=== PATIENT | female | born 1970 | race Caucasian/White ===

== ENCOUNTER → 2017-05-09 | Outpatient (CLI) | payer OTHER ==
[2017-05-13 08:44] LABS: CHLAMYDIA TRACH RNA*** NOT DETECTED (NOT DETECTED); GC (NEIS GONORRHOEAE)RNA** NOT DETECTED (NOT DETECTED)
== END | disposition home or self-care (01) ==
LOC: C.LABPVFM 12:32
PROVIDERS: ATTEND Nurse Practitioner Family
DX: Z00.00 Encounter for general adult medical examination without abnormal findings (principal)

== ENCOUNTER → 2017-05-09 | Outpatient (CLI) | payer OTHER | END | disposition home or self-care (01) | LOC: C.PAPS 12:31 | PROVIDERS: ATTEND Nurse Practitioner Family | DX: Z00.00 Encounter for general adult medical examination without abnormal findings (principal); Z12.4 Encounter for screening for malignant neoplasm of cervix ==

== ENCOUNTER → 2017-05-21 | Outpatient (CLI) | payer OTHER ==
--- NOTE | 2017-05-21 15:16 | DIAGNOSTIC IMAGING REPORT ---
EXAMINATION: PELVIC ULTRASOUND (transabdominal and endovaginal scanning) CLINICAL HISTORY: N92.6 Irregular menstrual cycle COMPARISON STUDY: None FINDINGS: The uterus measured 12.9 x 3.8 x 5.5 cm. Within the cervix, there are is blunting gland cysts and a small amount of fluid. There is a 7 mm echogenic focus within the endometrium, possibly representing a polyp or potentially a submucosal fibroid.. There is a 21 mm fibroid within the right body of the uterus. The endometrial stripe measured 13 mm. The right ovary measured 22 x 33 x 15 mm.. The left ovary measured 6 x 26 x 26 mm. There is a 22 mm follicle.. There is no ultrasonographic evidence of ovarian torsion. It should be noted that ovarian torsion can be present with normal Doppler ultrasonographic findings. There was no evidence of pathologic free pelvic fluid. IMPRESSION: 7 mm echogenic focus within the endometrium, possibly representing a polyp or less likely submucosal fibroid. Gynecological consultation is recommended. Electronically signed by: Delio Mills M.D. 05/21/2017 3:15 PM Dictated Date/Time: 05/21/2017 3:09 PM
== END | disposition home or self-care (01) ==
LOC: C.ULTR 13:52
PROVIDERS: ATTEND Nurse Practitioner Family
DX: N92.6 Irregular menstruation, unspecified (principal)

== ENCOUNTER → 2017-06-20 | Outpatient (CLI) | payer OTHER ==
[2017-06-20 14:07] LABS: HEMATOCRIT 27.9 % (37-47); MEAN CELL VOLUME 60.3 fL (80-100); MEAN CORPUSCULAR HEMOGLOBIN 16.8 pg (25-34); MEAN PLATELET VOLUME 8.8 fL (7.4-10.4); PLATELET COUNT 434 K/uL (130-400); RED BLOOD COUNT 4.63 M/uL (4.2-5.4); WHITE BLOOD COUNT 7.35 K/uL (4.8-10.8)
[2017-06-20 17:20] LABS: PREG INTERNAL NEGATIVE QC NEG CLEAR BACKGROUND; PREG INTERNAL POSITIVE QC POS CONTROL LINE
== END | disposition home or self-care (01) ==
LOC: C.LABPVFM 11:40
PROVIDERS: ATTEND Physician Assistant
DX: N92.0 Excessive and frequent menstruation with regular cycle (principal)

== ENCOUNTER → 2017-07-24 | Outpatient (CLI) | payer OTHER ==
[2017-07-24 18:16] LABS: BLOOD UREA NITROGEN 8 mg/dl (7-18); BUN/CREATININE RATIO 15.5 (10-20); CALCIUM 9.3 mg/dl (8.5-10.1); CARBON DIOXIDE 27 mmol/L (21-32); CHLORIDE 104 mmol/L (98-107); CREATININE 0.53 mg/dl (0.60-1.20); GLUCOSE 107 mg/dl (70-99); POTASSIUM 3.9 mmol/L (3.5-5.1); SODIUM 137 mmol/L (136-145)
[2017-07-24 18:21] LABS: FERRITIN 1.9 ng/ml (8.0-388.0); TOTAL IRON BINDING CAPACITY 426 mcg/dl (250-450)
[2017-07-24 18:23] LABS: MEAN CELL VOLUME 63.7 fL (80-100); MEAN CORPUSCULAR HGB CONC 28.2 g/dl (32-36); MEAN PLATELET VOLUME 8.8 fL (7.4-10.4); PLATELET COUNT 397 K/uL (130-400); RED BLOOD COUNT 5.18 M/uL (4.2-5.4); WHITE BLOOD COUNT 7.43 K/uL (4.8-10.8)
== END | disposition home or self-care (01) ==
LOC: C.LABPVFM 11:12
PROVIDERS: ATTEND Nurse Practitioner Family
DX: D64.9 Anemia, unspecified (principal)

== ENCOUNTER → 2017-09-23 | Outpatient (CLI) | payer OTHER ==
[~2017-09-23] MED LIST: LANS15CA6 PO
== END | disposition home or self-care (01) ==
LOC: C.PATHSPEC 17:15
PROVIDERS: ATTEND Obstetrics & Gynecology
DX: N92.0 Excessive and frequent menstruation with regular cycle (principal)

== ENCOUNTER → 2017-09-30 | Day surgery (SDC) | payer OTHER ==
[2017-09-23 09:47] VITALS: Ht 157.5 cm; Wt 64.1 kg
[~2017-09-30] VITALS: Ht 157.5 cm; Wt 64.1 kg
[~2017-09-30] MED LIST changes: +ATROPINE SULFATE 0.1 MG/ML 5ML SYR IV PRN; +EpHEDrine SULFATE INJ 50 MG/ML AMP IV PRN; +FENTANYL CITRATE INJ 50 MCG/1 ML 2 ML VIAL IV PRN; +FENTANYL CITRATE INJ 50 MCG/1 ML 2 ML VIAL ONE; +FLUMAZENIL 0.1 MG/1 ML 10 ML VIAL IV PRN; +KETOROLAC TROMETHAMINE 30 MG/ML VIAL ONE; +LACTATED RINGER'S 1000ML 1,000 ML IV SCH; +LIDOCAINE HCL 2% 2 ML VIAL (20MG/ML) ONE; +MIDAZOLAM HCL 1 MG/ML 2ML VIAL ONE; +NALOXONE HCL 0.4 MG/1 ML VIAL/CARP IV PRN; +ONDANSETRON INJ 2 MG/ML 2 ML VIAL IV PRN; +ONDANSETRON INJ 2 MG/ML 2 ML VIAL ONE; +OXYCODONE/ACETAMINOPHEN 5-325 TAB PO PRN; +PROMETHAZINE HCL INJ 25 MG in SODIUM CHLORIDE 0.9% 50ML 50 ML IV PRN; +PROPOFOL IV EMULSION 10 MG/ML 20 ML VIAL IV ONE; +SODIUM CHLORIDE 0.9% 1000ML 1,000 ML IV SCH
--- NOTE | 2017-09-30 06:52 | History & Physical Bridge Note ---
H&P Re-Evaluation Bridge Note: I have examined the patient, reviewed the History & Physical and in the interval since the performance of the History & Physical I have noted the following changes of clinical significance: No changes noted
--- NOTE | 2017-09-30 07:36 | [facility] Post Operative Brief Note ---
Immediate Operative Summary Operative Date Sep 30, 2017. Pre-Operative Diagnosis Menorrhagia Post-Operative Diagnosis Same as pre-op Procedure(s) Performed hysteroscopy, D&C, Novasure ablation Surgeon Under Baster Surgeon(s) None Estimated Blood Loss 5ml Findings Consistent with Post-Op Diagnosis Specimens A.Endometrial curettings Drains None bladder emptied prior to procedure Anesthesia Type MAC Complication(s) none Disposition Accompanied Pt To Recovery: no Disposition: Recovery Room / PACU
--- NOTE | 2017-09-30 07:40 | Discharge Instructions-[facility] ---
Discharge Instructions Date of Service Sep 30, 2017. Visit Reason for Visit: Menorrhagia Discharge Discharge Diagnosis / Problem: same Discharge Goals Goal(s): Diagnostic testing, Therapeutic intervention Activity Recommendations Activity Limitations: per Instructions/Follow-up section Anesthesia . Post Anesthesia Instructions: If you have had General Anesthesia or IV Sedation: * Do not drive today. * Resume driving when surgeon permits. * Do not make important decisions or sign legal documents today. * Call surgeon for: 1. Temperature elevations greater than 101 degrees F. 2. Uncontrollable pain. 3. Excessive bleeding. 4. Persistent nausea and vomiting. 5. Medication intolerance (nausea, vomiting or rash). * For nausea and vomiting use only clear liquids such as: tea, soda, bouillon until nausea subsides, then gradually increase diet as tolerated. * If you have any concerns or questions, call your surgeon's office. If physician is unavailable and it is an emergency, call 911 or go to the nearest emergency room. . Instructions / Follow-Up Instructions / Follow-Up ACTIVITY RECOMMENDATIONS: * Avoid tampons, douching, hot tubs, pools, and intercourse until bleeding has stopped. * May shower as usual. * No strenuous activity for 24-48 hours. After 24-48 hours, you may do anything you feel like doing (driving and sports are okay). SPECIAL CARE INSTRUCTIONS: Special Diet: * Mild nausea may occur in the immediate post-operative period. * Take clear liquids such as tea, cola or bouillon until all nausea has subsided; you may then resume your normal diet. Special Care: * Light bleeding and vaginal spotting can last from a few days to 3-4 weeks. Call your doctor if bleeding becomes heavier than the heaviest part of your period. * Check your temperature twice a day for one week. If it goes above 100.4 degrees Fahrenheit (38.0 Celsius), notify your doctor. * Call your doctor's office for an appointment for 6 weeks after your surgery. FOLLOW-UP VISIT: Call your doctor's office for an appointment for 6 weeks after your surgery. Diet Recommendations Home Diet: resume previous diet Procedures Procedures Performed: hysteroscopy, D&C, Novasure ablation Pending Studies Studies pending at discharge: yes List of pending studies: pathology Medical Emergencies . Who to Call and When: Medical Emergencies: If at any time you feel your situation is an emergency, please call 911 immediately. . Non-Emergent Contact Non-Emergency issues call your: Primary Care Provider, [facility] . . "Provider Documentation" section prepared by Nabila Troy. .
--- NOTE | 2017-09-30 08:06 | OPERATIVE REPORT ---
DATE OF OPERATION: 09/30/2017 PREOPERATIVE DIAGNOSIS: Menorrhagia. POSTOPERATIVE DIAGNOSIS: Same. PROCEDURES PERFORMED: Hysteroscopy, dilation and curettage and NovaSure ablation. SURGEON: Nabila Troy DO. OPERATING ROOM SURGICAL TECHNICIAN: None. ESTIMATED BLOOD LOSS: 5 mL. FINDINGS: Cervix measured at 4 cm. The uterus measured 11 cm for a total cavity of 7 cm with 4.0 power 143. Time of burn 49 seconds. Bilateral tubal ostia visualized a large amount of fluffy endometrial tissue. At conclusion of the burn, pink cervical tissue and appropriate burn of endometrial tissue. SPECIMENS: Endometrial curettings. DRAINS: None. Bladder emptied prior to procedure. ANESTHESIA: MAC. COMPLICATIONS: None. DISPOSITION: Stable and good to recovery area. INDICATIONS FOR PROCEDURE: The patient is a 46-year-old G3, P3 who elected to undergo endometrial ablation for heavy menses. She has a long history of anemia, had a hemoglobin of 7.8 in May of 2017 and then 9.8 in June of 2017. She is being treated for anemia by hematology who diagnosed heavy menses as being the cause of her anemia. She reports cycles lasting 7-10 days, changing tampon every hour. She often feels weak and dizzy with menses. She is currently being treated for anemia with IV iron and feels great with the IV iron infusions. The patient has a history of tubal ligation and was seeking permanent treatment of heavy menses and is not interested in any hormonal and/or NSAID options. DESCRIPTION OF PROCEDURE: The patient was seen in the preoperative holding area where risks, benefits, alternatives to surgery were reviewed. She elected to proceed with the case. She was taken to the operating room where MAC anesthesia was given. She was prepared and draped in the usual sterile fashion with feet in candy cane stirrups in the dorsal lithotomy position. The bladder was emptied. Timeout was confirmed. A weighted speculum was placed in the vagina. Cervix was visualized, grasped with a single tooth tenaculum. The uterus was sounded with the above noted measurements. The cervix was gently dilated to admit the hysteroscope. The hysteroscope was inserted and the cavity was viewed. The hysteroscope was removed and the curettage was undertaken with a sharp curette. All curettings were sent to pathology. Next, the NovaSure device was inserted through the cavity and set to its highest length setting of 6.5 with a width of 4.0. Cavity check was performed and then the burn was performed. NovaSure device was removed. The hysteroscope was then reinserted and the cavity was visualized and a good burn was noted. The hysteroscope was removed. All instruments were removed from the vagina. Excellent hemostasis was observed. The patient was taken to the postoperative recovery area in stable and good condition. I attest to the content of the Intraoperative Record and any orders documented therein. Any exception s are noted below.
[2017-09-30 08:13] VITALS: TEMP 36.9
--- NOTE | 2017-09-30 08:35 | Anesthesia Progress Nt - [facility] ---
Anesthesia Post Op Note Date & Time Sep 30, 2017 at 08:35 Vital Signs Pain Intensity: 0 Vital Signs Past 12 Hours Date Time Temp Pulse Resp B/P (MAP) Pulse Ox O2 Delivery O2 Flow Rate FiO2 09/30/17 08:13 36.9 57 16 123/86 (98) 100 Room Air 09/30/17 08:06 121/74 09/30/17 08:05 36.4 58 12 121/74 100 Room Air 09/30/17 08:03 64 16 99 09/30/17 08:03 63 16 09/30/17 08:01 118/78 09/30/17 07:58 61 2 100 09/30/17 07:58 61 2 09/30/17 07:56 106/68 09/30/17 07:53 60 1 100 09/30/17 07:53 60 1 09/30/17 07:51 106/64 09/30/17 07:48 68 12 09/30/17 07:48 68 12 100 09/30/17 07:46 106/65 09/30/17 07:44 104/65 09/30/17 07:43 36.2 73 12 104/65 100 Mask 6 09/30/17 06:35 36.6 81 16 130/81 (97) 100 Room Air Notes Mental Status: alert / awake / arousable, participated in evaluation Pt Amnestic to Procedure: Yes Nausea / Vomiting: adequately controlled Pain: adequately controlled Airway Patency, RR, SpO2: stable & adequate BP & HR: stable & adequate Hydration State: stable & adequate Anesthetic Complications: no major complications apparent
[2017-09-30 08:41] VITALS: BP 121/84; PULSE 64; O2SAT 99
== END | disposition home or self-care (01) ==
LOC: X.SURG 06:05
PROVIDERS: ATTEND Obstetrics & Gynecology
DX: N92.0 Excessive and frequent menstruation with regular cycle (principal); Z83.3 Family history of diabetes mellitus